=== PATIENT | male | born 1975 | race Caucasian/White ===

== ENCOUNTER 2016-07-21 23:39 | Emergency (ER) | payer MEDICAID ==
[~2016-07-21] VITALS: Ht 167.6 cm; Wt 111.3 kg
[2016-07-21 23:40] VITALS: BP 160/105
== END 2016-07-22 00:14 | disposition home or self-care (01) ==
LOC: ED 23:59
DX: K04.7 Periapical abscess without sinus (principal); K02.9 Dental caries, unspecified; I10 Essential (primary) hypertension
CPT/HCPCS: 99283

== ENCOUNTER 2018-06-10 22:44 | Emergency (ER) | payer MEDICAID ==
[~2018-06-10] VITALS: Ht 172.7 cm; Wt 86.0 kg
[2018-06-10] MEDS ORDERED: MUPIROCIN OINT 2%, 22GM TP ONE (23:30)
[2018-06-10 23:31] VITALS: BP 133/69
--- NOTE | 2018-06-10 23:35 | NUR ---
MUPORICIN OINTMENT NOT IN ED OMNICELL, REQUESTED FROM PHARMACY
--- NOTE | 2018-06-11 00:06 | NUR ---
PT GIVEN DC INSTRUCTIONS AND SCRIPT. PT EDUCATED REGARDING DC RX. MUPORICIN OINTMENT APPLIED TO WOUNDS, WOUND CARE COMPLETED PER EDPA'S INSTRUCTIONS. GAUZE/ADAPTIC DRESSINGS APPLIED. FSBS AND REPEAT VS REVIEWED BY EDPA. PT A&O, RESPS EVEN AND UNLABORED. PT AMB TO DC DESK WITH STEADY GAIT, NADN AT DC.
== END 2018-06-11 00:07 | disposition home or self-care (01) ==
LOC: ED 23:59
DX: L01.03 Bullous impetigo (principal); B35.9 Dermatophytosis, unspecified; I10 Essential (primary) hypertension; F32.9 Major depressive disorder, single episode, unspecified
CPT/HCPCS: 82962; 99283

== ENCOUNTER 2018-07-05 12:33 | Emergency (ER) | payer MEDICAID ==
[~2018-07-05] VITALS: Ht 165.1 cm; Wt 102.3 kg
[2018-07-05 12:44] VITALS: BP 131/92
[2018-07-05] MEDS ORDERED: LIDOCAINE-MPF 1%, 5ML ONE (12:50)
[2018-07-05] MEDS ORDERED: LIDOCAINE-MPF 1%, 5ML INFIL ONE (13:00)
--- NOTE | 2018-07-05 13:00 | NUR ---
left first finger with erythema, edema and pale discoloration around right side of nail bed.
--- NOTE | 2018-07-05 13:43 | NUR ---
Dressing applied to left index finger, bacitracin applied and covered with bandaid, patient tolerated well. Discharge instructions discussed with patient including when to return to emergency department, verbalizes understanding. Prescription provided with instruction for use. Patient ambulates with steady gait to discharge desk in no acute distress.
== END 2018-07-05 13:44 | disposition home or self-care (01) ==
LOC: ED 13:15
DX: L03.012 Cellulitis of left finger (principal)
CPT/HCPCS: 10060; 99283

== ENCOUNTER 2018-07-22 05:36 | Emergency (ER) | payer MEDICAID ==
[~2018-07-22] VITALS: Ht 165.1 cm; Wt 102.8 kg
[2018-07-22 05:38] VITALS: BP 135/83
--- NOTE | 2018-07-22 05:41 | NUR ---
C/O LEFT INDEX FINGER PAIN SINCE 0000. per triage note
[2018-07-22] MEDS ORDERED: LIDOCAINE-MPF 1%, 5ML INFIL ONE (06:00)
[2018-07-22] MEDS ORDERED: LIDOCAINE-MPF 1%, 5ML ONE (06:02)
[2018-07-22] MEDS ORDERED: BACITRACIN ZINC OINT 500U/GM, 0.9 GM ONE (06:25)
--- NOTE | 2018-07-22 06:52 | NUR ---
given dc instruction understood
== END 2018-07-22 06:59 | disposition home or self-care (01) ==
LOC: ED 06:36
DX: L03.012 Cellulitis of left finger (principal); I10 Essential (primary) hypertension
CPT/HCPCS: 10060; 99283

== ENCOUNTER 2019-03-17 02:32 | Emergency (ER) | payer MEDICAID, OTHER ==
[~2019-03-17] VITALS: Ht 165.1 cm; Wt 82.0 kg
[2019-03-17 02:34] VITALS: BP 147/97
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
[2019-03-17] MEDS ORDERED: DIPH,PERTUSS(ACELL),TET VAC/PF 0.5 ML IM-VACC ONE ×2 (02:54→03:00)
[2019-03-17] MEDS ORDERED: LIDOCAINE-MPF 1%, 5ML ONE (02:55)
[2019-03-17] MEDS ORDERED: LIDOCAINE 2%, 20ML SQ ONE (03:00)
== END 2019-03-17 04:16 | disposition home or self-care (01) ==
LOC: ED 04:07
DX: S05.42XA Penetrating wound of orbit with or without foreign body, left eye, initial encounter (principal); F32.9 Major depressive disorder, single episode, unspecified; I10 Essential (primary) hypertension; Y04.8XXA Assault by other bodily force, initial encounter; Y93.89 Activity, other specified; Y92.69 Other specified industrial and construction area as the place of occurrence of the external cause; Y99.0 Civilian activity done for income or pay
CPT/HCPCS: 12011; 90471; 90715; 99283

== ENCOUNTER 2021-01-23 22:59 | Emergency (ER) | payer SELFPAY ==
[~2021-01-23] VITALS: Ht 167.6 cm; Wt 115.9 kg
[2021-01-24 01:08] VITALS: BP 140/107
== END 2021-01-24 01:11 | disposition home or self-care (01) ==
LOC: ED 23:28
DX: J06.9 Acute upper respiratory infection, unspecified (principal); Z20.822 Contact with and (suspected) exposure to COVID-19; H61.21 Impacted cerumen, right ear; R06.00 Dyspnea, unspecified; I10 Essential (primary) hypertension
CPT/HCPCS: 71045; 99284; U0003; U0005